=== PATIENT | male | born 1990 | race Caucasian/White ===

== ENCOUNTER 2017-06-06 08:00 | Emergency (ER) | payer MEDICAID, SELFPAY ==
[2017-06-06 08:01] VITALS: BP 144/84; PULSE 78; RESP 16; TEMP 36.9; O2SAT 97; BMI 21.2
--- NOTE | 2017-06-06 08:19 | ED.DCSUM_ITS ---
- ER Visit Summary Date of Service: 06/06/17 Chief Complaint: [Pain and swelling to right wrist.] History of Present Illness: The patient is a 26 M [presents to the emergency department with pain and swelling to his right wrist for about 4-5 days. Patient states that he awoke with discomfort one morning. 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 Patient also gives a history of a fall yesterday however he had the pain before yesterday. Patient states that he thinks the left wrist took the brunt of the fall yesterday. Patient denies any other injuries. Patient complains of pain with movement and states that 3 days ago could not use a nail gun.] Physical Examination: [Right wrist-patient has some soft tissue swelling diffusely. There is no erythema or warmth noted. There is no ecchymosis or bruising. He is neurovascularly intact distally. Most of the pain seems to be over the radial aspect. Patient has a negative Chay test. Pain is reproduced with extension of the thumb. ] Test Results: [X-ray right wrist-] acute fractures noted or dislocations based on my interpretation and official radiology report pending Emergency Department Course and Treatment: [Patient will be given a thumb spica splint and anti-inflammatory.] Treatment Plan: [Anti-inflammatory and recommended avoiding repetitive motions with the right wrist] Disposition: [Discharged to home in stable condition] Impression: [Right wrist pain-suspect tendinitis/sprain] This note was generated with [employer] dictation software. It may contain incorrect words, spelling, and punctuation that were not noted in review of the chart prior to signing ED Disposition - Plan for ED Patient: Chief Complaint: Upper Extremity Injury Referrals: Care Physician,No Primary [Primary Care Provider] -
--- NOTE | 2017-06-06 08:28 | RAD_ITS ---
STUDY: X-RAY - RIGHT WRIST REASON FOR EXAM: Male, 26 years old. Continued pain and swelling. Status post injury 5 days ago. TECHNIQUE: 3 view(s) of the wrist were obtained. COMPARISON: None. FINDINGS: Normal visualized distal radius and ulna. Normal radiocarpal articulation. Normal distal radioulnar articulation. Normal carpal bones. Normal carpal articulations. Normal carpometacarpal articulation of the thumb. Normal second through fifth carpometacarpal articulations. Normal visualized metacarpal bones. The soft tissue structures are unremarkable. RAD/Wrist min 3 Views IMPRESSION: Normal x-ray examination of the wrist. Electronically Signed: Isaac Mckeon MD at 8:56 EDT , Service support ,
--- NOTE | 2017-06-06 08:55 | ED.DEP ---
ED Disposition - Plan for ED Patient: Chief Complaint: Upper Extremity Injury Instructions: ED Sprain Wrist Prescriptions: Naproxen [Naprosyn] 500 mg PO BID PRN #20 tab Referrals: Care Physician,No Primary [Primary Care Provider] - Hannah Connors DO [STAFF PHYSICIAN] - 5-7 Days
[2017-06-06 09:24] VITALS: PULSE 81; RESP 16; O2SAT 99
--- NOTE | 2017-06-06 09:25 | ED.RN ---
THIS NURSE REVIEWED D/C INSTRUCTIONS WITH PT. PT VERBALIZED UNDERSTANDING OF INSTRUCTIONS. PT DENIES FURTHER NEEDS OR QUESTIONS AT THIS TIME. PT AMBULATES FROM ROOM ON OWN WITHOUT ASSISTANCE FROM STAFF
== END 2017-06-06 09:25 | disposition home or self-care (01) ==
PROVIDERS: Emergency Provider Emergency Medicine
DX: M25.531 Pain in right wrist (principal); Z72.0 Tobacco use
CPT/HCPCS: 73110; 99283

== ENCOUNTER 2017-10-04 11:40 | Emergency (ER) | payer MEDICAID, SELFPAY ==
[2017-10-04 11:42] VITALS: BP 154/84; PULSE 90; RESP 16; TEMP 36.7; O2SAT 98; BMI 20.2
--- NOTE | 2017-10-04 12:04 | ED.VISSUMM ---
- ER Visit Summary Date of Service: 10/04/17 Chief Complaint: Facial swelling History of Present Illness: The patient is a 27 M with no primary care physician or dentist. He reports he is swelling to his right maxilla that began 3-4 days ago. Is gradually worsened. Reports he has an aching diffuse pain over the right upper jaw that is 7 out of 10 at worst and 410 currently. Is worsened by eating. Physical Examination: Vitals: Stable. Afebrile. Mouth: No trismus. No edema of the floor of the mouth. Widespread dental decay. No focal tenderness or abscess. Mild soft tissue swelling of the right maxillary area. General: A&O x 3. NAD. Cardiovascular exam: Regular rate and rhythm, no murmur, rub or gallop. Respiratory exam: Clear to auscultation bilaterally. No wheezes or stridor. Abdominal exam: Soft, nontender, nondistended, normal bowel sounds. No peritoneal signs. Extremity: No clubbing, cyanosis, or edema. Emergency Department Course and Treatment: Patient was treated naproxen and penicillin. He is resting comfortably. Treatment Plan: Patient will be discharged naproxen and penicillin. Instructed to follow-up the dentist as soon as possible. He is given a list of local dentists. Disposition: To home in improved and stable condition. Impression: 1. Dental abscess. This note was generated with [employer] dictation software. It may contain incorrect words, spelling, and punctuation that were not noted in review of the chart prior to signing ED Disposition - Plan for ED Patient: Chief Complaint: Dental Instructions: ED Abscess Dental Prescriptions: Ondansetron [Zofran Odt] 4 mg PO Q8H PRN PRN #10 tablet PRN Reason: Nausea Naproxen [Naprosyn] 500 mg PO BID PRN #20 tablet Penicillin V Potassium 500 mg PO 4X/DAY #40 tablet Referrals: Dentist,Your [STAFF PHYSICIAN] - As soon as possible
[2017-10-04] MEDS: Penicillin Vk 250 MG Tablet 500 MG PO (12:28)
[2017-10-04] MEDS: Naproxen 250 MG Tablet 500 MG PO (12:28)
[2017-10-04 12:31] VITALS: BP 108/69; PULSE 55; RESP 16; O2SAT 100
== END 2017-10-04 12:31 | disposition home or self-care (01) ==
LOC: ED 12:17
PROVIDERS: Emergency Provider Emergency Medicine
DX: K04.7 Periapical abscess without sinus (principal); F17.210 Nicotine dependence, cigarettes, uncomplicated; K02.9 Dental caries, unspecified
CPT/HCPCS: 99282

== ENCOUNTER 2017-11-27 13:22 | Emergency (ER) | payer MEDICAID, SELFPAY ==
[2017-11-27 13:22] VITALS: BP 135/98; PULSE 133; RESP 18; TEMP 36.8; O2SAT 98; BMI 19.3
--- NOTE | 2017-11-27 14:03 | ED.VISSUMM ---
- ER Visit Summary Date of Service: 11/27/17 Chief Complaint: Dental abscess History of Present Illness: The patient is a 27 M draining abscess today left upper gumline. Increasing pain over 2 days. Subjective fevers. Tobacco history. No medication allergies. Tylenol taken this morning. Has a dental appointment in 2 weeks. States history of poor dentition. Last dentist evaluation was 2 years ago. No difficulty swallowing. No neck or chest pains. No dyspnea. Physical Examination: General: Alert and oriented ?3, no acute distress HEENT: Normocephalic, atraumatic. Moist mucosa membranes. Diffuse dental decay, mostly left upper molars with decay to the gumline. There is slight fluctuance in her soft palate to the molar. There is an open drainage site, there is no active drainage. Airway patent. No sublingual edema. Neck: supple, nontender. Cardiovascular: Regular rate 96 and rhythm, no murmurs Respiratory: Normal breath sounds, symmetric, no distress Abdomen: Soft, nontender, nondistended Extremities: Nontender, no edema, pulses intact ?4 Neuro: no focal neurological deficits. Test Results: [] Emergency Department Course and Treatment: Patient heart rate in triage was 133 on my evaluation was 96. Patient afebrile, nontoxic. Has a draining abscess. Patient started on naproxen and penicillin. He will follow-up keep his dentist appointment for definitive care as an outpatient. Treatment Plan: [] Disposition: Discharge Impression: 1. Dental abscess 2. Diffuse dental caries This note was generated with [employer] dictation software. It may contain incorrect words, spelling, and punctuation that were not noted in review of the chart prior to signing ED Disposition - Plan for ED Patient: Disposition: Home or Assisted Living Chief Complaint: Dental Diagnosis: Dental abscess Instructions: Dental Abscess Prescriptions: Naproxen [Naprosyn] 500 mg PO BID PRN #20 tablet Penicillin V Potassium 500 mg PO 4X/DAY #40 tablet Referrals: Care Physician,No Primary [Primary Care Provider] - Additional Instructions: Keep dentist appointment for definitive care. Take your medication as prescribed.
--- NOTE | 2017-11-27 14:07 | ED.DCSUM_ITS ---
- ER Visit Summary Date of Service: 11/27/17 Chief Complaint: Dental abscess History of Present Illness: The patient is a 27 M draining abscess today left upper gumline. Increasing pain over 2 days. Subjective fevers. Tobacco history. No medication allergies. Tylenol taken this morning. Has a dental a ppointment in 2 weeks. States history of poor dentition. Last dentist evaluation was 2 years ago. No difficulty swallowing. No neck or chest pains. No dyspnea. Physical Examination: General: Alert and oriented ?3, no acute distress HEENT: Normocephalic, atraumatic. Moist mucosa membranes. Diffuse dental decay, mostly left upper molars with decay to the gumline. There is slight fluctuance in her soft palate to the molar. There is an open drainage site, there is no active drainage. Airway patent. No sublingual edema. Neck: supple, nontender. Cardiovascular: Regular rate 96 and rhythm, no murmurs Respiratory: Normal breath sounds, symmetric, no distress Abdomen: Soft, nontender, nondistended Extremities: Nontender, no edema, pulses intact ?4 Neuro: no focal neurological deficits. Test Results: [] Emergency Department Course and Treatment: Patient heart rate in triage was 133 on my evaluation was 96. Patient afebrile, nontoxic. Has a draining abscess. Patient started on naproxen and penicillin. He will follow-up keep his dentist appointment for definitive care as an outpatient. Treatment Plan: [] Disposition: Discharge Impression: 1. Dental abscess 2. Diffuse dental caries This note was generated with [employer] dictation software. It may contain incorrect words, spelling, and punctuation that were not noted in review of the chart prior to signing ED Disposition - Plan for ED Patient: Disposition: Home or Assisted Living Chief Complaint: Dental Diagnosis: Dental abscess Instructions: Dental Abscess Prescriptions: Naproxen [Naprosyn] 500 mg PO BID PRN #20 tablet Penicillin V Potassium 500 mg PO 4X/DAY #40 tablet Referrals: Care Physician,No Primary [Primary Care Provider] - Additional Instructions: Keep dentist appointment for definitive care. Take your medication as prescribed.
[2017-11-27] MEDS: Penicillin Vk 250 MG Tablet 500 MG PO (14:10)
[2017-11-27] MEDS: Naproxen 500 MG Tablet PO (14:11)
[2017-11-27 14:12] VITALS: PULSE 86; O2SAT 98
== END 2017-11-27 14:13 | disposition home or self-care (01) ==
PROVIDERS: Emergency Provider Emergency Medicine
DX: K04.7 Periapical abscess without sinus (principal); Z72.0 Tobacco use; K02.9 Dental caries, unspecified
CPT/HCPCS: 99283

== ENCOUNTER 2018-09-07 07:00 | Emergency (ER) | payer MEDICAID, SELFPAY ==
[2018-09-07 07:01] VITALS: BP 142/83; PULSE 82; RESP 15; TEMP 36.4; O2SAT 97; BMI 21.1
--- NOTE | 2018-09-07 07:16 | ED.VIS.DENTA ---
History of Present Illness Chief Complaint: Dental Informant: Patient Onset: Today, Hours - 0300 Context: Sudden Onset Timing: Continuous Quality: Pain Location: Upper right teeth Current Severity: Moderate Maximum Severity: Severe Worsened by: Patient has not had any to eat or drink Relieved by: - - Nothing Associated Symptoms: Facial Swellling, - - Denies fever, and has not had any to eat or drink and is unaware if he has heat or cold sensitivity. Narrative: Patient is a 28-year-old male who is awake and sleep because of dental pain and facial swelling that he reports started at 0300. He has an appointment to be seen at the [facility] for extensive dental decay. He denies fever, chills night sweats. He denies a traumatic fever, murmur, SBE or IV drug use. He denies change in voice, difficulty opening closing his mouth, difficulty swallowing or breathing. He denies rash. Prior similar symptoms: Yes Recent Illness/Hospitalization: Yes - Past Medical History (1) Dental disease Status: Acute Past Medical History - Allergies and Home Meds Allergies/Adverse Reactions: Allergies SEAFOOD Allergy (Uncoded 11/27/17 13:22) Anaphylaxis Primary Care Physician: Care Physician,No Primary [Primary Care Provider] - Prior records reviewed: Yes Lives: Spouse/ Significant Other Smoking Status: Current every day smoker Alcohol: None Drugs: None Review of Systems General: Denies: Chills, Fever, Malaise, Subjective, Sweats, Weight loss, - Eyes: Denies: Visual changes - bilaterally, Blurred Vision - bilaterally, Diplopia ENT: Denies: Bilateral ear pain, Rhinorrhea, Sore throat Cardiovascular: Denies: Chest pain, Palpitations Respiratory: Denies: Dyspnea Gastrointestinal: Denies: Nausea, Vomiting Musculoskeletal: Denies: Myalgias, Arthralgias, Neck pain Skin: Denies: Rash, Wounds Neurological: Denies: Headache Allergy: Denies: Uticaria, Swelling of the mouth, Swelling of the tongue Physical Exam Vital Signs/Narrative: Vital Signs Temp Pulse Resp BP Pulse Ox 09/07/18 07:01 97.6 F L 82 15 142/83 H 97 Inital Vital Signs reviewed: Yes General: Well nourished, Well developed Head: Normocephalic, Atraumatic ENT: Moist mucous membranes, No nasal trauma, No rhinorrhea, Sinus tenderness, TM's clear, - - Swelling over the right maxillary region. Negative for: Dry mucous membranes, Nasal congestion, TM erythema left, TM erythema right Mouth/Throat: Normal oral mucosa, Normal posterior oropharynx, No sublingual edema, Normal Stensen's duct, Dental abscess, Gingivitis, Tenderness on tooth percussion, Widespread dental decay. Negative for: Normal inspection lips/gums - Lips appear normal. Gums are inflamed with evidence of periodontal disease, Apthous ulcer, Dental trauma, Dental avulsion, Dentral fracture, Filling loss, Focal gum swelling, Trismus Neck: Supple, No lymphadenopathy, Nontender, No JVD. Negative for: Anterior submandibular lymphadenopathy, Posterior submandibular lymphadenopathy, Anterior submental lymphadenopathy, Posterior submental lymphadenopathy, Soft tissue swelling, Submandibular soft tissue swelling, Submental soft tissue swelling, Parotid tenderness Cardiovascular: Regular rate, Regular rhythm, No murmurs, Normal S1, Normal S2 Respiratory: No distress, CTA bilaterally Skin: Normal color, No rash, No Trauma. Negative for: Cyanosis, Diaphoresis, Jaundice Neurological: Alert, Oriented x3, Cranial nerves II-XII grossly intact, Normal Strength, Normal Sensation Psychological: Normal affect Diagnostic/Tx/Re-eval - Medical Decision Making Patient has extensive dental caries with exposure of pulp and erosion to gum. There is facial swelling consistent with an apical abscess. There is no evidence of trismus. There is no evidence of facial cellulitis. Patient was treated with clindamycin and NSAIDs in the department since there is no contraindication. Prescription for gentamicin, NSAID and opiate analgesia was electronically transmitted to pharmacy of choice. ED Disposition - Plan for ED Patient: Disposition: Home or Assisted Living Diagnosis: Apical alveolar abscess, Dental caries extending into pulp, Gingivitis, Periodontal disease, unspecified Instructions: Dental Abscess Prescriptions: Clindamycin HCl [Cleocin] 300 mg PO Q6H #28 cap Transmission Status: Pending to [facility] Naproxen [Naprosyn] 500 mg PO BID #14 tab Transmission Status: Pending to [facility] Hydrocodone Bitart/Apap 5-325 [[place] 5MG-325MG] 1 tablet PO Q6H PRN PRN 3 Days #10 tablet PRN Reason: Pain Transmission Status: Received by [facility] Referrals: Care Physician,No Primary [Primary Care Provider] - Lana Judd [NON-STAFF] - Keep Leonardo appointment Additional Instructions: Prescriptions were electronically transmitted to [facility].
[2018-09-07] MEDS: Naproxen 250 MG Tablet 500 MG PO (07:26)
[2018-09-07] MEDS: Clindamycin HCl 150 MG Capsule 300 MG PO (07:26)
== END 2018-09-07 07:31 | disposition home or self-care (01) ==
LOC: ED 07:28
PROVIDERS: Emergency Provider Emergency Medicine
DX: K04.7 Periapical abscess without sinus (principal); K02.9 Dental caries, unspecified; K05.10 Chronic gingivitis, plaque induced; K05.6 Periodontal disease, unspecified; F17.200 Nicotine dependence, unspecified, uncomplicated
CPT/HCPCS: 99283

== ENCOUNTER 2019-03-06 21:43 | Emergency (ER) | payer MEDICAID, SELFPAY ==
[2019-03-06 21:43] VITALS: BP 149/92; PULSE 81; RESP 18; TEMP 36.9; O2SAT 98; BMI 21.7
--- NOTE | 2019-03-06 22:38 | ED.VISSUMM ---
- ER Visit Summary Date of Service: 03/06/19 Chief Complaint: Dental pain History of Present Illness: The patient is a 28 M no significant past medical history. He has appointment see his dentist next week. Basically states he has known cavities and decay. He ran out of his penicillin. And is scheduled to have teeth pulled and dentures made. Denies any fever or chills. Physical Examination: Male no acute distress vital signs stable afebrile. H EENT exam unremarkable except very poor dentition multiple cavities multiple decayed teeth down the gumline. Swollen gums but no abscess. No trismus. No facial swelling. Posterior pharynx is normal. No trouble swallowing or breathing. No swelling or tenderness underneath the tongue on the floor of his mouth. Neck nontender no lymphadenopathy. Lungs clear to auscultation. Heart regular rhythm no murmur. Abdomen is soft and nontender. Normal bowel sounds. No peritoneal signs. He is moving all 4 extremities. Neurologically is awake and alert with no focal motor deficits. Test Results: None Emergency Department Course and Treatment: Patient be started on Pen-Vee K 500 4 times daily 10 days. Tylenol Motrin for pain. Treatment Plan: Oral antibiotics. Motrin for pain. Follow-up with his dentist. Disposition: Discharge Impression: Dental cavities, decay and pain Gingivitis This note was generated with [employer] dictation software. It may contain incorrect words, spelling, and punctuation that were not noted in review of the chart prior to signing ED Disposition - Plan for ED Patient: Referrals: Pete Burger MD [Primary Care Provider] -
--- NOTE | 2019-03-06 22:40 | ED.DEP ---
ED Disposition - Plan for ED Patient: Disposition: Home or Assisted Living Instructions: Dental Pain, Dental Cavity Prescriptions: Penicillin Vk [Pen-Vee K , V-Cillin K] 500 mg PO 4X/DAY #40 tab Prescription Printed Referrals: Pete Burger MD [Primary Care Provider] - As Needed Additional Instructions: Antibiotic 4 times a day. Tylenol and Motrin for pain. Follow-up with your dentist.
== END 2019-03-06 22:51 | disposition home or self-care (01) ==
PROVIDERS: Emergency Provider Emergency Medicine; PCP Family Medicine
DX: K02.9 Dental caries, unspecified (principal); K05.10 Chronic gingivitis, plaque induced; Z72.0 Tobacco use
CPT/HCPCS: 99282

== ENCOUNTER 2020-01-12 13:23 | Emergency (ER) | payer MEDICAID, SELFPAY ==
[2020-01-12 13:23] VITALS: BP 151/101; PULSE 103; RESP 20; TEMP 36.3; O2SAT 98; BMI 23.6
[2020-01-12 13:35] VITALS: BP 151/101; PULSE 103; RESP 20; TEMP 36.3; O2SAT 98
--- NOTE | 2020-01-12 13:55 | ED.DCSUM_ITS ---
- ER Visit Summary Date of Service: 01/12/20 Chief Complaint: Subjective fevers History of Present Illness: The patient is a 29 M who presents with subjective fevers that began this morning. Patient states he has been feeling hot at home. Patient states it is off and on. Patient admits to drinking some alcohol last night. Patient states he woke up and noticed the subjective fevers this morning. Patient also admits to some dental infections. Patient states he has burning and throbbing in his lower molars on the right. Patient states it is worse with eating hot foods. Patient states it improved slightly with Naprosyn. Patient also admits to a headache. Patient states he has not been on antib iotics for a month. Patient states he is scheduled to see his dentist this week. Physical Examination: Vital signs are stable. Patient is afebrile. Patient is in no acute distress. Oral mucosa is pink and moist. There are multiple dental caries noted. There is some gingival edema in the right lower molar area. There is no fluctuance. There is no evidence of any abscess. There is no sublingual edema or evidence of Piotr's angina. Neck is supple. Trachea is midline. There is no JVD. Heart was regular rate and rhythm. Lungs are clear and equal bilaterally. Abdomen is soft. Bowel sounds are normal. There is no tenderness. Cranial nerves II through XII are intact. There are no focal motor or sensory deficits noted. Extremities are intact. There is no calf tenderness or edema. Emergency Department Course and Treatment: Patient was given a dose of Pen-Vee K here. Patient was given a prescription for Pen-Vee K. Patient states he is not concerned that his fever may be coming from COVID-19. Patient states his and daughter have been tested and were both negative. Patient states he has not had any known exposures to COVID-19. Patient denies any loss of taste or smell. Patient was instructed to follow-up with his dentist this week. Patient was instructed to follow-up with his primary care physician in 5 to 7 days. Patient understood and was agreeable with the plan. All questions were answered. Disposition: Discharge home Impression: 1. Infected dental caries This note was generated with [employer] software. It may contain incorrect words, spelling, and punctuation that were not noted in review of the chart prior to signing ED Disposition - Plan for ED Patient: Disposition: Home or Assisted Living Diagnosis: Infected dental caries Instructions: ED CAVITY Dental Prescriptions: Penicillin V Potassium 500 mg PO 4X/DAY #40 tab Prescription Printed Referrals: Pete Burger MD [Primary Care Provider] - 5-7 Days Dentist,Your [STAFF PHYSICIAN] - Keep Leonardo appointment
[2020-01-12] MEDS: Penicillin Vk 250 MG Tablet 500 MG PO (14:34)
== END 2020-01-12 14:36 | disposition home or self-care (01) ==
LOC: ED 14:22
PROVIDERS: Emergency Provider Emergency Medicine; PCP Family Medicine
DX: K04.7 Periapical abscess without sinus (principal); K02.9 Dental caries, unspecified; Z87.891 Personal history of nicotine dependence
CPT/HCPCS: 99282

== ENCOUNTER 2020-06-29 14:02 | Emergency (ER) | payer MEDICAID, SELFPAY ==
[2020-06-29 14:04] VITALS: BP 139/98; PULSE 103; RESP 18; TEMP 36.9; O2SAT 98; BMI 21.7
--- NOTE | 2020-06-29 14:10 | ED.VIS.DENTA ---
HPI History of Present Illness Chief Complaint: Dental Informant: patient Onset/Context/Timing Onset: Days Context: Gradual Onset Timing: Continuous Current Severity: Moderate Maximum Severity: Moderate Relieved by: Topicals Associated Symptoms Assocated Symptom - Dental: cold sensitivity and hot sensitivity; Negative for fever, jaw swelling or face swelling Narrative Narrative: The patient is a 29-year-old male with no significant medical history presents to the emergency department dental pain. Patient states he has an appointment with his dentist coming up. He has widespread dental disease and states that over the past 2 days, he has had increasing pain in his right lower jaw. He denies any fevers or chills. He denies any trouble speaking or swallowing. He is otherwise been in his normal state of health. Prior similar symptoms: Yes Recent Illness/Hospitalization: No PFSH PFSH Home Medications penicillin V potassium 500 mg PO 4X/DAY #40 tab 03/06/19 [Rx Last Taken Unknown] penicillin V potassium 500 mg PO 4X/DAY #40 tab 01/12/20 [Rx Last Taken Unknown] naproxen 500 mg PO BID #20 tab 06/29/20 [Rx Last Taken Unknown] penicillin V potassium 500 mg PO 4X/DAY #40 tab 06/29/20 [Rx Last Taken Unknown] Allergy/AdvReac Type Severity Reaction Status Date / Time SEAFOOD Allergy Anaphylaxis Uncoded 06/29/20 14:05 Social History Smoking Status: Current every day smoker ROS ROS ED Constitutional Constitutional ED: Denies chills or fever(s) Eyes Eyes: Denies blurry vision or change in vision ENT ENT ED: Denies ear pain or sore throat Cardiovascular Cardiovascular: Denies chest pain or palpitations Respiratory/Chest Respiratory/Chest: Denies cough, dyspnea or dyspnea on exertion Gastrointestinal Gastrointestinal: Denies abdominal pain, nausea or vomiting Genitourinary Genitourinary ED: Denies dysuria or urinary frequency Musculoskeletal Musculoskeletal: Denies arthralgias or myalgias Integumentary Denies rash Neurologic Neurologic: Denies headache(s) or paresthesias Psychiatric Psychiatric: Denies anxiety or depression Endocrine Endocrinology: Denies polydipsia or polyuria Allergic/Immunologic Allergic/Immunologic ED: Denies urticaria EXAM Physical Exam Const Vital Signs: 06/29/20 14:04 Temperature 98.5 F Temperature Source Temporal Pulse Rate 103 H Respiratory Rate 18 Blood Pressure 139/98 H Blood Pressure Mean 111 Pulse Ox 98 Oxygen Delivery Method Room Air Positive well nourished and well developed General Appearance ED: well developed HEENT Reports normocephalic, head/scalp atraumatic and moist mucous membranes HEENT Narrative: The patient has widespread dental disease. There are erosive cavities. He has poor dentition. The submental space is soft. There is no trismus or stridor. Mouth ED: Yes oral and palatal mucosa normal, Yes lips normal, Yes tongue normal, No mouth trauma and No salivary gland abnormal Mouth: oral and palatal mucosa normal, lips normal, tongue normal, No mouth trauma and No salivary gland abnormal Teeth and Gingiva: abnormal tooth and associated gingiva, poor dentition and teeth discoloration Throat: posterior oropharynx normal Eyes PERRL and EOMs intact bilaterally Neck no lymphadenopathy and supple General: Negative for tenderness Chest Wall inspection of chest normal Resp normal respiratory effort and clear to auscultation bilaterally Cardio regular rate, regular rhythm and no murmurs GI normal to inspection, nondistended, normoactive bowel sounds Palpation: Negative for tender, guarding or rebound tenderness present Back/Spine no CVA tenderness Cervical Spine: Negative for cervical spine tenderness Thoracic Spine / Upper Back: Negative for thoracic spinal tenderness Extremity normal to inspection General Extremety ED: Negative for tenderness Neuro oriented x3 and CN's II-XII intact bilaterally Neuro Narrative: No focal deficits appreciated. Sensorium / Orientation: alert Psych mental status grossly normal Skin no rashes or lesions noted, no wounds and skin turgor normal MDM MDM MDM Narrative Medical decision making narrative: The patient presents with dental pain. There is widespread dental disease, but no evidence of Piotr angina. There are multiple cavities that are erosive. He has no significant jaw tenderness or fluctuance. The patient will be treated with penicillin. He is given a dose of analgesics here and be continued on anti-inflammatories. He will be discharged home. Impression 1. Dental pain Discharge Plan Triage Chief Complaint: Dental ED Provider: Capo Ramírez Dx/Rx/DC Orders Instructions: ED Dental Pain Prescriptions: New penicillin V potassium 500 MG tablet 500 mg PO 4X/DAY Qty: 40 RF: 0 naproxen 500 MG tablet 500 mg PO BID Qty: 20 RF: 0 No Action penicillin V potassium 250 MG tablet 500 mg PO 4X/DAY Qty: 40 RF: 0 penicillin V potassium 500 MG tablet 500 mg PO 4X/DAY Qty: 40 RF: 0 Primary Care Provider: Pete Burger Referrals: Pete Burger MD [Primary Care Provider] -
[2020-06-29] MEDS: HYDROcodone Bitartrate/Apap 5/325 Tablet PO (14:51)
[2020-06-29 14:53] VITALS: RESP 85
== END 2020-06-29 14:55 | disposition home or self-care (01) ==
LOC: ED 14:24
PROVIDERS: Emergency Provider Emergency Medicine; PCP Family Medicine
DX: K08.89 Other specified disorders of teeth and supporting structures (principal); F17.200 Nicotine dependence, unspecified, uncomplicated; Z79.1 Long term (current) use of non-steroidal anti-inflammatories (NSAID)
CPT/HCPCS: 99283

== ENCOUNTER 2020-07-06 14:50 | Emergency (ER) | payer MEDICAID, SELFPAY ==
[2020-07-06 14:51] VITALS: BP 128/92; PULSE 118; RESP 16; TEMP 36.3; O2SAT 97; BMI 23.1
--- NOTE | 2020-07-06 15:15 | RAD_ITS ---
STUDY: X-RAY - RIGHT ANKLE REASON FOR EXAM: Male, 29 years old. Pain after trauma. TECHNIQUE: 3 view(s) of the ankle. COMPARISON: None. FINDINGS: Please see the impression. RAD/Ankle min 3 Views IMPRESSION: Displaced avulsion fracture fragment between the lateral talus and lateral malleolus, probably old. Soft tissue swelling overlying the lateral malleolus. Electronically Signed: Wesley Chang MD at 15:32 EDT Tel , Service support ,
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
== END 2020-07-06 15:49 | disposition home or self-care (01) ==
LOC: ED 15:42
PROVIDERS: Emergency Provider Emergency Medicine; PCP Family Medicine
DX: S93.401A Sprain of unspecified ligament of right ankle, initial encounter (principal); W01.0XXA Fall on same level from slipping, tripping and stumbling without subsequent striking against object, initial encounter; Y93.9 Activity, unspecified; Y92.9 Unspecified place or not applicable; Y99.9 Unspecified external cause status; F17.200 Nicotine dependence, unspecified, uncomplicated; Z79.1 Long term (current) use of non-steroidal anti-inflammatories (NSAID)
CPT/HCPCS: 73610; 99283

== ENCOUNTER 2020-07-17 19:44 | Emergency (ER) | payer MEDICAID, SELFPAY ==
[2020-07-17 19:44] VITALS: BP 152/92; PULSE 98; RESP 16; TEMP 36.6; O2SAT 98; BMI 22.9
--- NOTE | 2020-07-17 19:50 | ED.RN ---
PT OBSERVED LEAVING DEPT SOON AFTER BEING ROOMED. PT STATES I'M GOOD, JUST TALKED TO MY DOCTOR. FURTHER STATES HE DOES NOT WANT TO BE EVALUATED IN ED NOW.
== END 2020-07-17 19:55 ==
LOC: ED 19:58
PROVIDERS: Emergency Provider Emergency Medicine; PCP Family Medicine
DX: M79.606 Pain in leg, unspecified (principal)

== ENCOUNTER 2020-11-24 08:58 | Emergency (ER) | payer MEDICAID, SELFPAY ==
[2020-11-24 08:59] VITALS: BP 125/89; PULSE 89; RESP 16; TEMP 36.6; O2SAT 95; BMI 22.0
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
--- NOTE | 2020-11-24 09:15 | RAD_ITS ---
STUDY: X-RAY - RIGHT HAND REASON FOR EXAM: Male, 30 years old. Injury TECHNIQUE: 3 view(s) of the hand. COMPARISON: None. FINDINGS: Normal radiocarpal articulation. Normal distal radioulnar joint. Normal visualized carpal bones. Normal carpal articulations Normal carpometacarpal articulation of the thumb. Normal second through fifth carpometacarpal joints. Nondisplaced condylar fracture at the base of the fifth metacarpal Normal metacarpophalangeal joint of the thumb. Normal interphalangeal joint of the thumb. Normal proximal and distal phalanges of the thumb. Normal metacarpophalangeal joints of the second through fifth fingers. Normal proximal and distal interphalangeal joints of the second through fifth fingers. Normal phalanges of the second through fifth fingers. Soft tissue swelling. RAD/Hand Min 3 Views IMPRESSION: Nondisplaced comminuted fracture base of the fifth metacarpal with overlying soft tissue swelling. Electronically Signed: Antonio Clark MD at 9:25 EDT , Service support ,
== END 2020-11-24 10:01 | disposition home or self-care (01) ==
PROVIDERS: Emergency Provider Emergency Medicine; PCP Family Medicine
DX: S62.346A Nondisplaced fracture of base of fifth metacarpal bone, right hand, initial encounter for closed fracture (principal); W22.01XA Walked into wall, initial encounter; F17.210 Nicotine dependence, cigarettes, uncomplicated; Z79.1 Long term (current) use of non-steroidal anti-inflammatories (NSAID)
CPT/HCPCS: 73130; 99282

== ENCOUNTER → 2021-07-09 | Outpatient (CLI) | payer MEDICAID, SELFPAY ==
[2021-07-09 10:05] LABS: NATERA MAILED SPECIMEN
== END | disposition home or self-care (01) ==
LOC: PAVLAB 08:50
PROVIDERS: PCP Family Medicine; Referring Provider Obstetrics & Gynecology; Visit Provider Obstetrics & Gynecology
DX: Z31.440 Encounter of male for testing for genetic disease carrier status for procreative management (principal)
CPT/HCPCS: 36415

== ENCOUNTER 2021-10-26 10:43 | Emergency (ER) | payer MEDICAID, SELFPAY ==
[2021-10-26 10:44] VITALS: BP 127/98; PULSE 87; RESP 16; TEMP 36.3; O2SAT 99; BMI 22.4
--- NOTE | 2021-10-26 11:27 | ED.VIS.DENTA ---
HPI History of Present Illness Chief Complaint: Dental Informant: patient Narrative Narrative: Patient is a 31-year-old male with history of dental disease and tobacco use presenting with increased right mandibular dental pain. Has been worsening for the past 2 days. He states on this happens normally he will get Naprosyn and penicillin. He had a cough work today because he had a headache associated with this. He last had Naprosyn around 9 AM. He does have an appointment to see a dentist but not until March because at the soonest they can get him in. Denies any difficulty swallowing. Denies any fever or chills. No other complaints at this time. PFSH PFSH Home Medications amoxicillin 875 mg-potassium clavulanate 125 mg tablet 1 tab PO Q12H #20 tabs 10/26/21 [Rx Last Taken Unknown] naproxen 500 mg tablet (Naprosyn) 500 mg PO BID PRN pain #30 tabs 10/26/21 [Rx Last Taken Unknown] Allergy/AdvReac Type Severity Reaction Status Date / Time SEAFOOD Allergy Anaphylaxis Uncoded 11/24/20 09:01 Social History Smoking Status: Current every day smoker tobacco type: cigarettes ROS ROS ED Constitutional Constitutional ED: Denies chills or fever(s) Eyes Eyes: Denies change in vision ENT ENT ED: Reports other Details: Right lower dental pain ; Denies ear pain or sore throat Cardiovascular Cardiovascular: Denies chest pain Respiratory/Chest Respiratory/Chest: Denies cough or dyspnea Gastrointestinal Gastrointestinal: Denies nausea or vomiting Integumentary Denies rash Neurologic Neurologic: Reports headache(s); Denies paresthesias Psychiatric Psychiatric: Denies anxiety EXAM Physical Exam Const Vital Signs: 10/26/21 10:44 Temperature 97.4 F L Temperature Source Temporal Pulse Rate 87 Respiratory Rate 16 Blood Pressure 127/98 H Blood Pressure Mean 107 Pulse Ox 99 Oxygen Delivery Method Room Air Positive well nourished and well developed General Appearance ED: well developed and NAD HEENT Reports TM's clear HEENT Narrative: Severely poor dentition throughout with multiple missing teeth and the remaining teeth are all broken and ground down. No obvious abscess appreciated. No swelling of the buccal surface or cheek appreciated. Normal phonation. Sublingual mucosa is soft. Generalized tenderness of the right lower mandibular area. Negative for trauma Face and Sinus: Negative for sinuses nontender Tympanic Membrane ED: Yes TM's clear Eyes PERRL and EOMs intact bilaterally Neck supple Neck Narrative: No meningeal signs Chest Wall inspection of chest normal and palpation of chest normal Resp normal respiratory effort Cardio regular rate and regular rhythm Neuro oriented x3 Sensorium / Orientation: alert Motor Exam: Negative for general weakness Psych mental status grossly normal MDM MDM MDM Narrative Medical decision making narrative: Patient evaluated for acute on chronic dental pain. He has poor dentition throughout. We started on Augmentin and given Tylenol in the ER as he already had naproxen prior to arrival. Will be given a prescription for naproxen and Augmentin. Is given referral for [facility]. Counseled to abstain from tobacco use. No signs of Piotr's angina or any airway compromise. No abscess amenable to drainage at this time. Discharge Plan Triage Chief Complaint: Dental ED Provider: Moriah Vidal Dx/Rx/DC Orders Clinical Impression: Dental disease, Dentalgia, Tobacco use Instructions: ED Dental Cavity Prescriptions: New naproxen [Naprosyn] 500 mg tablet 500 mg PO BID PRN (Reason: pain) Qty: 30 0RF amoxicillin-pot clavulanate 875-125 mg tablet 1 tab PO Q12H Qty: 20 0RF Primary Care Provider: Pete Burger Referrals: Pete Burger MD [Primary Care Provider] - Lana Judd [Non-Staff] - As soon as possible Activity Restrictions/Additional Instructions: You may take [id number] Tylenol in addition to the naproxen Disposition Disposition: Home, Self Care
[2021-10-26] MEDS: Acetaminophen 325 MG Tablet 650 MG PO (11:34)
[2021-10-26] MEDS: Amox/Clavulanate 875 MG Tablet PO (11:34)
== END 2021-10-26 11:39 | disposition home or self-care (01) ==
LOC: ED 11:39
PROVIDERS: Emergency Provider Emergency Medicine; PCP Family Medicine; Visit Provider Emergency Medicine
DX: K08.89 Other specified disorders of teeth and supporting structures (principal); R68.84 Jaw pain; F17.210 Nicotine dependence, cigarettes, uncomplicated
CPT/HCPCS: 99283

== ENCOUNTER 2022-04-09 11:25 | Emergency (ER) | payer MEDICAID, SELFPAY ==
[2022-04-09 11:26] VITALS: BP 160/98; PULSE 133; RESP 18; TEMP 36.7; O2SAT 98; BMI 22.8
[2022-04-09] MEDS: Amox/Clavulanate 875 MG Tablet PO (12:15)
--- NOTE | 2022-04-09 12:19 | ED.VIS.DENTA ---
HPI History of Present Illness Chief Complaint: Dental Informant: patient Narrative Narrative: Patient is a 31-year-old male with history of poor dentition and tobacco use presenting with worsening dental pain. He states had worsening pain over the past 1 to 2 weeks. He has not taken any [id number] NSAIDs as he ran out of his prior prescription naproxen however he has been taking a couple shots of liquor a day to help with his pain. He feels that he is having a hard time swallowing and is concerned because his tongue has a discoloration. He has an appointment to see a dentist in [facility] however is not till June. He initially had an appointment for March but because of his insurance at this time and had to be moved/change. Patient states he has cut back on his tobacco use. He denies any drooling. Denies any speech changes. Denies any significant facial swelling. The pain is worse on his right lower jaw. No fevers. No other complaints at this time. PFSH PFSH Home Medications amoxicillin 875 mg-potassium clavulanate 125 mg tablet 1 tab PO Q12H #20 tabs 10/26/21 [Rx Last Taken Unknown] naproxen 500 mg tablet (Naprosyn) 500 mg PO BID PRN pain #30 tabs 10/26/21 [Rx Last Taken Unknown] amoxicillin 875 mg-potassium clavulanate 125 mg tablet 1 tab PO BID #14 tabs 04/09/22 [Rx Last Taken Unknown] naproxen 500 mg tablet (Naprosyn) 500 mg PO BID PRN pain #20 tabs 04/09/22 [Rx Last Taken Unknown] Allergy/AdvReac Type Severity Reaction Status Date / Time fish derived Allergy Severe Anaphylaxis Verified 01/21/22 16:21 [seafood - derived] shellfish derived Allergy Severe Anaphylaxis Verified 01/21/22 16:21 [seafood - shellfish] Social History Smoking Status: Current every day smoker tobacco type: cigarettes ROS ROS ED Constitutional Constitutional ED: Denies chills or fever(s) Eyes Eyes: Denies change in vision ENT ENT ED: Reports other Details: Painful swallowing, right lower dental pain Cardiovascular Cardiovascular: Denies chest pain Respiratory/Chest Respiratory/Chest: Denies cough Gastrointestinal Gastrointestinal: Denies nausea or vomiting Integumentary Denies rash Neurologic Neurologic: Denies headache(s) Hematologic/Lymphatic Hematologic/Lymphatic: Denies easy bleeding or easy bruising EXAM Physical Exam Const Vital Signs: 04/09/22 11:26 04/09/22 12:27 Temperature 98.1 F Temperature Source Temporal Pulse Rate 133 H 64 Respiratory Rate 18 15 Blood Pressure 160/98 H 124/77 H Blood Pressure Mean 118 Pulse Ox 98 97 Oxygen Delivery Method Room Air Positive well nourished and well developed General Appearance ED: well developed and NAD HEENT HEENT Narrative: Normocephalic atraumatic. Slightly injected right tympanic membrane. No air-fluid level or bulging appreciated. Normal left tympanic membrane. Normal nasal mucosa. Patient has a poor dentition with multiple missing and rotted teeth. No obvious abscess. Submental mucosa is soft. He does have some mild erythema/injection of the oropharynx but the uvula is midline. Normal phonation and no trismus appreciated. Mild anterior cervical chain lymphadenopathy with mild tenderness on the right compared to the left. Normal thyroid on palpation. Eyes PERRL Neck supple General: normal visual inspection; Negative for anterior neck swelling or submandibular swelling Chest Wall inspection of chest normal Resp normal respiratory effort Cardio regular rhythm and no murmurs Rate: tachycardic GI normal to inspection, nondistended, normoactive bowel sounds Neuro oriented x3 and moves all extremities Sensorium / Orientation: alert Motor Exam: Negative for general weakness Psych mental status grossly normal Mood & Affect: anxious Skin no rashes or lesions noted MDM MDM MDM Narrative Medical decision making narrative: Patient is evaluated for recurrent dental pain. I actually saw him about 6 months ago for similar complaint. He did have temporary improvement with Augmentin and naproxen however his symptoms have returned. I do not see an obvious abscess amenable to drainage. No signs of airway compromise or Piotr's angina. I do not appreciate any significant edema of the face. I do not think lab work or imaging is indicated at this time. Patient is given referral to the [facility] clinic for additional dental resources and is given the dental clinic form. He will be restarted again on Augmentin and naproxen. He is given first dose in the emergency room. He is counseled return precautions. He is counseled/encouraged to work on abstaining from tobacco use. He verbalizes agreement understand this plan. Discharge Plan Triage Chief Complaint: Dental ED Provider: Moriah Vidal Dx/Rx/DC Orders Clinical Impression: Dental disease, Odynophagia Instructions: ED Dental Pain Prescriptions: New amoxicillin-pot clavulanate 875-125 mg tablet 1 tab PO BID Qty: 14 0RF naproxen [Naprosyn] 500 mg tablet 500 mg PO BID PRN (Reason: pain) Qty: 20 0RF No Action naproxen [Naprosyn] 500 mg tablet 500 mg PO BID PRN (Reason: pain) Qty: 30 0RF amoxicillin-pot clavulanate 875-125 mg tablet 1 tab PO Q12H Qty: 20 0RF Stand Alone Forms: ED Work / School Excuse Primary Care Provider: Pete Burger Referrals: Pete Burger MD [Primary Care Provider] - Lana Judd [Non-Staff] - As soon as possible Disposition Disposition: Home, Self Care Discharge Date/Time: 04/09/22 12:28
[2022-04-09 12:27] VITALS: BP 124/77; PULSE 64; RESP 15; O2SAT 97
== END 2022-04-09 12:28 | disposition home or self-care (01) ==
PROVIDERS: Emergency Provider Emergency Medicine; PCP Family Medicine; Visit Provider Emergency Medicine
DX: K08.89 Other specified disorders of teeth and supporting structures (principal); R13.10 Dysphagia, unspecified; F17.210 Nicotine dependence, cigarettes, uncomplicated; R68.84 Jaw pain
CPT/HCPCS: 99283

== ENCOUNTER 2022-07-09 00:13 | Emergency (ER) | payer MEDICAID, SELFPAY ==
[2022-07-09 00:14] VITALS: BP 127/94; PULSE 102; RESP 18; TEMP 36.2; O2SAT 99; BMI 23.9
--- NOTE | 2022-07-09 00:24 | CT_ITS ---
INDICATION: hematuria. A radiation dose optimization technique was used for this scan. COMPARISON: None. FINDINGS: Noncontrast serial CT axial images through the abdomen and pelvis with coronal and sagittal reformatted series. PANCREAS: No peripancreatic fat stranding. BOWEL/MESENTERY: No dilated bowel loops. No significant free fluid. No free air. GALLBLADDER: No pericholecystic fat stranding. LIVER/STOMACH: Fatty liver. URINARY COLLECTING SYSTEM/ KIDNEYS: No obstructing ureteral calculus. No significant renal parenchymal abnormality. APPENDIX: Normal caliber gas containing appendix. LUNG BASES: Unremarkable. BONES: Unremarkable for age. CT/Abdomen/Pelvis without Cont IMPRESSION: No acute abdominal abnormality is identified, to include normal appendix and no evidence of obstructing ureteral calculus. Fatty liver. Electronically Signed: Rolo Garcia MD at 1:31 EDT ,
--- NOTE | 2022-07-09 00:25 | EX.ED.DYSGE1 ---
HPI History of Present Illness Chief Complaint: Complaint Detail of Chief Complaint: Dysuria, hematuria Informant: patient Onset/Context/Timing Onset: Weeks Context: Gradual Onset Narrative Narrative: Patient presents with a 2-week history of dysuria. He denies suprapubic or back pain stating he only had pain when he urinated. Today the pain has become worse and he started noticing blood in his urine as well. No fever or chills. No history of STDs. No lesions or discharge. No testicular pain. PFSH PFSH Medical History no medical history no medical history Home Medications amoxicillin 875 mg-potassium clavulanate 125 mg tablet 1 tab PO Q12H #20 tabs 10/26/21 [Rx Last Taken Unknown] naproxen 500 mg tablet (Naprosyn) 500 mg PO BID PRN pain #30 tabs 10/26/21 [Rx Last Taken Unknown] amoxicillin 875 mg-potassium clavulanate 125 mg tablet 1 tab PO BID #14 tabs 04/09/22 [Rx Last Taken Unknown] naproxen 500 mg tablet (Naprosyn) 500 mg PO BID PRN pain #20 tabs 04/09/22 [Rx Last Taken Unknown] doxycycline monohydrate 100 mg capsule 100 mg PO BID #20 CAPSULES 07/09/22 [Rx Last Taken Unknown] phenazopyridine 200 mg tablet (Pyridium) 200 mg PO TID PRN pain #10 tabs 07/09/22 [Rx Last Taken Unknown] Allergy/AdvReac Type Severity Reaction Status Date / Time fish derived Allergy Severe Anaphylaxis Verified 01/21/22 16:21 [seafood - derived] shellfish derived Allergy Severe Anaphylaxis Verified 01/21/22 16:21 [seafood - shellfish] Social History Smoking Status: Current every day smoker tobacco type: cigarettes ROS ROS ED Constitutional Constitutional ED: Denies chills or fever(s) Eyes Eyes: Denies change in vision ENT ENT ED: Denies rhinorrhea or sore throat Cardiovascular Cardiovascular: Denies chest pain or palpitations Respiratory/Chest Respiratory/Chest: Denies cough or dyspnea Gastrointestinal Gastrointestinal: Denies abdominal pain, diarrhea, nausea or vomiting Genitourinary Genitourinary ED: Reports dysuria, hematuria and urinary frequency Musculoskeletal Musculoskeletal: Denies back pain or extremity pain Integumentary Denies Abrasions or rash Neurologic Neurologic: Denies headache(s) or weakness Psychiatric Psychiatric: Denies anxiety or depression Allergic/Immunologic Allergic/Immunologic ED: Denies lip swelling or urticaria EXAM Physical Exam Const Vital Signs: 07/09/22 00:14 Temperature 97.2 F L Temperature Source Temporal Pulse Rate 102 H Respiratory Rate 18 Blood Pressure 127/94 H Blood Pressure Mean 105 Pulse Ox 99 Oxygen Delivery Method Room Air Positive well nourished and well developed General Appearance ED: well developed HEENT Reports normocephalic and head/scalp atraumatic Eyes PERRL and EOMs intact bilaterally Neck supple Chest Wall inspection of chest normal and palpation of chest normal Resp normal respiratory effort and clear to auscultation bilaterally Cardio regular rate and regular rhythm GI normal to inspection, nondistended, normoactive bowel sounds Palpation: soft Back/Spine no CVA tenderness Extremity normal to inspection Neuro oriented x3 and no sensory deficits noted Sensorium / Orientation: alert Motor Exam: strength 5/5 throughout Psych mental status grossly normal Skin no rashes or lesions noted MDM MDM MDM Narrative Medical decision making narrative: Labwork obtained to evaluate for leukocytosis, anemia, and electrolyte derangement. Urinalysis obtained to evaluate for infection/hematuria. CT scan of the flank obtained to evaluate for acute renal abnormality or kidney stone. Patient given a dose of Toradol along with a dose of Pyridium. Lab Data Attestation: I reviewed the patient's lab results. Labs: Laboratory Results - last 24 hr 07/09/22 07/09/22 07/09/22 00:19 00:30 00:30 WBC 11.7 H RBC 4.73 Hgb 14.9 Hct 43.9 MCV 92.8 MCH 31.5 MCHC 33.9 RDW Std Deviation 44.0 H RDW Coeff of Yolanda 13.0 Plt Count 265 MPV 9.1 Immature Gran % (Auto) 0.400 Neut % (Auto) 53.5 Lymph % (Auto) 31.5 [place] % (Auto) 10.0 Eos % (Auto) 3.8 Baso % (Auto) 0.8 Absolute Neuts (auto) 6.2 Absolute Lymphs (auto) 3.67 Nucleated RBC % 0 Sodium 140 Potassium 3.8 Chloride 106 Carbon Dioxide 27.0 Anion Gap 7 BUN 14 Creatinine 1.12 Estim Creat Clear Calc 107.01 Est GFR (MDRD) Af Amer 97 Est GFR (MDRD) Non-Af 80 BUN/Creatinine Ratio 12.5 Glucose 90 Calcium 10.0 Urine Color Yellow Urine Clarity Clear Urine pH 6.[address] 1.010 Urine Protein 30 H Urine Glucose (UA) Normal Urine Ketones Negative Urine Occult Blood 250 H Urine Nitrite Negative Urine Bilirubin Negative Urine Urobilinogen Normal Ur Leukocyte Esterase 500 H Urine RBC 5-10 SEEN Urine WBC 25-50 SEEN Ur Squamous Epith Cells 0 SEEN Urine Bacteria 0 SEEN Urine Mucus 0 SEEN Radiography Diagnostic Testing: Clinical Impression(s) from Imaging Studies Abdomen/Pelvis CT 07/09/22 00:24 IMPRESSION: No acute abdominal abnormality is identified, to include normal appendix and no evidence of obstructing ureteral calculus. Fatty liver. Electronically Signed: Rolo Garcia MD at 1:31 EDT , Treatment and Re-Evaluation :: CBC was a white count 11.7 with normal differential. Chemistry studies unremarkable. Creatinine is 1.12. Urinalysis reveals pyuria with 25-50 white cells and 5-10 red cells. No bacteria are seen. Nitrites are negative. A gonorrhea and Chlamydia test has been sent from the urine. Patient be given a dose of Rocephin and given doxycycline. Patient denies any discharge or history of STDs. He believes he and his are 100% little to each other and he does not think that he has a STD. I will recommend follow-up with urology. Prescription for Pyridium will be sent to the pharmacy along with doxycycline. Patient was advised that if his gonorrhea or chlamydia test are positive that he would be contacted. Discharge Plan Triage Chief Complaint: Complaint ED Provider: Kellie Seymour Dx/Rx/DC Orders Clinical Impression: Pyuria, sterile Prescriptions: New doxycycline monohydrate 100 mg capsule 100 mg PO BID Qty: 20 0RF phenazopyridine [Pyridium] 200 mg tablet 200 mg PO TID PRN (Reason: pain) Qty: 10 0RF No Action naproxen [Naprosyn] 500 mg tablet 500 mg PO BID PRN (Reason: pain) Qty: 30 0RF amoxicillin-pot clavulanate 875-125 mg tablet 1 tab PO Q12H Qty: 20 0RF amoxicillin-pot clavulanate 875-125 mg tablet 1 tab PO BID Qty: 14 0RF naproxen [Naprosyn] 500 mg tablet 500 mg PO BID PRN (Reason: pain) Qty: 20 0RF Primary Care Provider: Pete Burger Referrals: Pete Burger MD [Primary Care Provider] - Kain Gatica MD [Med Staff - Active Staff] - 1-2 Weeks Activity Restrictions/Additional Instructions: As discussed, your tests reveal white blood cells and evidence of infection in your urine, however no bacteria are seen. Your urine has been sent for gonorrhea and chlamydia testing to rule this out as a source. A urine culture has also been sent to test for bacterial growth. Please complete the antibiotics you were given and follow-up with Dr. Gatica, urologist. Disposition Disposition: Home, Self Care
[2022-07-09] MEDS: Ketorolac 30 MG/ML Syringe IV (00:35)
[2022-07-09] MEDS: Phenazopyridine 95 MG Tablet 190 MG PO (00:36)
[2022-07-09 00:39] LABS: Absolute Lymphocyte Count 3.67 X10^3/uL (0.83-4.51); Absolute Neutrophil Count 6.2 X10^3/uL (2.0-7.7); Basophil# 0.09 X10^3/uL; Basophil% 0.8 % (0-1); Eosinophil# 0.44 X10^3/uL; Eosinophils% 3.8 % (0-5); Hematocrit 43.9 % (40-54); Hemoglobin 14.9 g/dL (13.0-16.5); Lymphocyte # 3.67 X10^3/ul (0.83-4.51); Lymphocyte % 31.5 % (19-41); Mean Corp Hgb Conc 33.9 g/dL (32-36); Mean Corpuscular Hgb 31.5 pg (27.0-32.0); Mean Corpuscular Volume 92.8 fL (80-94); Mean Platelet Vol. 9.1 fl (6.2-12.0); Monocyte# 1.16 X10^3/uL; NRBC Flagged by Analyzer 0 % (0-5); Neutrophil # 6.24 X10^3/uL (2.7-7.7); Neutrophil % 53.5 % (47-70); Platelet Count 265 K/mm3 (150-450); Red Blood Count 4.73 M/mm3 (4.6-6.2); White Blood Count 11.7 K/mm3 (4.4-11.0)
[2022-07-09 00:39] LABS: Bacteria 0 SEEN /hpf (None Seen); Mucous, Urine 0 SEEN /hpf (<or=2+); Squamous Epithelial Cells - UA 0 SEEN /hpf (0-5)
[2022-07-09 00:44] LABS: Color, Urine Yellow (Yellow); Glucose, Dipstick Normal (Normal); Ketone-Dipstick Negative (Negative); Leukocyte Esterase-Dipstick 500 /ul (Negative); Nitrite-Dipstick Negative (Negative); Occult Blood-Urine 250 /ul (Negative); Protein-Dipstick 30 mg/dl (Negative); Urine Bilirubin Dipstick Negative (Negative); Urine Clarity Clear (Clear); Urine Urobilinogen Normal (Normal); Urine pH 6.5 (5.0 - 8.0)
[2022-07-09 00:57] LABS: Anion Gap 7 (5-15); BUN 14 mg/dL (7-18); BUN/Creat Ratio 12.5 RATIO (10-20); Chloride 106 mmol/L (98-107); Creatinine, Serum 1.12 mg/dL (0.70-1.30); EST Glomerular Filtration Rate 80 mL/min (>60); Est Glom Filt Rate - Afr Amer 97 mL/min (>60); Estimated Creatinine Clearance 107.01 ml/min; Glucose 90 mg/dL (74-106); Potassium 3.8 mmol/L (3.5-5.1); Sodium Level 140 mmol/L (136-145)
[2022-07-09 01:24] LABS: Red Blood Cells-Urine 5-10 SEEN /hpf (0-5); White Blood Cells 25-50 SEEN /hpf (0-5)
[2022-07-09] MEDS: Doxycycline 100 MG CAPSULE PO (02:12)
[2022-07-09] MEDS: Ceftriaxone 500 MG Vial 250 MG IM (02:13)
[2022-07-09 08:08] LABS: Chlamydia Trachomatis by PCR Negative (Negative); Probe Check PASS
[2022-07-09 08:10] LABS: Neisserai gonorrhoeae by PCR Positive (Negative)
== END 2022-07-09 02:18 | disposition home or self-care (01) ==
PROVIDERS: Emergency Provider Emergency Medicine; PCP Family Medicine; Visit Provider Emergency Medicine
DX: R82.81 Pyuria (principal); F17.210 Nicotine dependence, cigarettes, uncomplicated
CPT/HCPCS: 74176; 80048; 81001; 85025; 87086; 87491; 87591; 99283; A4216

== ENCOUNTER 2023-02-05 20:56 | Emergency (ER) | payer MEDICAID, SELFPAY ==
[2023-02-05 20:56] VITALS: BP 151/108; PULSE 125; RESP 16; TEMP 36.6; O2SAT 99; BMI 24.1
[2023-02-05] MEDS: Ondansetron 4 MG/2 ML Vial IV (22:22)
[2023-02-05] MEDS: 0.9% Normal Saline (1000mL) 1,000 ML 1000 ML IV (22:22)
[2023-02-05 22:23] LABS: Absolute Lymphocyte Count 3.71 X10^3/uL (0.83-4.51); Absolute Neutrophil Count 3.8 X10^3/uL (2.0-7.7); Basophil# 0.09 X10^3/uL; Basophil% 1.1 % (0-1); Eosinophil# 0.14 X10^3/uL; Eosinophils% 1.7 % (0-5); Hematocrit 44.6 % (40-54); Hemoglobin 15.3 g/dL (13.0-16.5); Lymphocyte # 3.71 X10^3/ul (0.83-4.51); Lymphocyte % 44.1 % (19-41); Mean Corp Hgb Conc 34.3 g/dL (32-36); Mean Corpuscular Hgb 31.9 pg (27.0-32.0); Mean Corpuscular Volume 92.9 fL (80-94); Mean Platelet Vol. 9.3 fl (6.2-12.0); Monocyte# 0.61 X10^3/uL; Monocyte% 7.2 % (0-10); NRBC Flagged by Analyzer 0 % (0-5); Neutrophil # 3.84 X10^3/uL (2.7-7.7); Neutrophil % 45.5 % (47-70); Platelet Count 249 K/mm3 (150-450); RBC Distribution Width CV 12.5 % (11.6-14.6); RBC Distribution Width SD 42.7 fl (35.1-43.9); White Blood Count 8.4 K/mm3 (4.4-11.0)
[2023-02-05 22:43] LABS: AST(SGOT) 26 U/L (15-37); Alanine Aminotransfer ALT/SGPT 39 U/L (16-61); Albumin, Serum 3.8 g/dL (3.2-5.0); Alkaline Phosphatase 67 U/L (45-117); Anion Gap 6 (5-15); BUN 10 mg/dL (7-18); BUN/Creat Ratio 10.9 RATIO (10-20); Bilirubin, Direct 0.09 mg/dL (0.00-0.30); Calcium,Total 9.2 mg/dL (8.5-10.1); Chloride 114 mmol/L (98-107); Creatinine, Serum 0.92 mg/dL (0.70-1.30); EST Glomerular Filtration Rate 101 mL/min (>60); Est Glom Filt Rate - Afr Amer 122 mL/min (>60); Globulin 3.6 g/dL (2.2-4.2); Glucose 95 mg/dL (74-106); Lipase 33 U/L (13-75); Potassium 3.4 mmol/L (3.5-5.1); Protein, Total 7.4 g/dL (6.4-8.2); Sodium Level 145 mmol/L (136-145)
[2023-02-05 23:00] VITALS: BP 120/66; PULSE 63; RESP 16; O2SAT 100
--- NOTE | 2023-02-05 23:01 | EDS_ITS ---
HPI HPI - GI History of Present Illness Chief Complaint: Nausea/Vomiting Narrative Narrative: 32-year-old male presenting with nausea/vomiting. He states his vomit was black. He states he had 1 episode yesterday and 1 today. Patient reports that he drinks vodka nearly every day. He states that about 6-10 shots. He has no history of stomach ulcers. No history of pancreatitis. He denies abdominal pain. He denies fevers or chills. He states he does not have any other medical problems except for poor dentition. His states that she has been telling him for a long time and he is to cut back on drinking. Patient does not believe that he needs admission for detox or that he would withdrawal. PFSH PFSH Home Medications naproxen 500 mg tablet (Naprosyn) 500 mg PO BID PRN pain #30 tabs 10/26/21 [Rx Last Taken Unknown] Allergy/AdvReac Type Severity Reaction Status Date / Time fish derived Allergy Severe Anaphylaxis Verified 01/21/22 16:21 [seafood - derived] shellfish derived Allergy Severe Anaphylaxis Verified 01/21/22 16:21 [seafood - shellfish] [place] And Derivatives Allergy HIVES Verified 02/05/23 20:58 Social History Smoking Status: Current every day smoker tobacco type: cigarettes ROS ROS ED Constitutional Constitutional ED: Denies chills, fever(s) or sweats Eyes Eyes: Denies blurry vision or change in vision ENT ENT ED: Denies ear pain or sore throat Cardiovascular Cardiovascular: Denies chest pain, palpitations or racing heartbeat Respiratory/Chest Respiratory/Chest: Denies cough, dyspnea or sputum Gastrointestinal Gastrointestinal: Reports nausea and vomiting; Denies abdominal pain, constipation or diarrhea Genitourinary Genitourinary ED: Denies dysuria, hematuria or urinary frequency Musculoskeletal Musculoskeletal: Denies arthralgias, myalgias or neck pain Integumentary Denies abscess, Abrasions or rash Neurologic Neurologic: Denies headache(s), paresthesias or weakness Psychiatric Psychiatric: Denies anxiety, depression, suicidal ideation or suicidal thoughts Endocrine Endocrinology: Denies polydipsia or polyuria EXAM Physical Exam Const Vital Signs: 02/05/23 20:56 Temperature 98 F Temperature Source Temporal Pulse Rate 125 H Respiratory Rate 16 Blood Pressure 151/108 H Blood Pressure Mean 122 Pulse Ox 99 Oxygen Delivery Method Room Air Positive well nourished General Appearance ED: NAD; Negative for pallor HEENT Reports moist mucous membranes normocephalic and atraumatic Eyes PERRL General Eye ED: Yes pale conjunctiva Resp normal respiratory effort and clear to auscultation bilaterally Auscultation: Negative for rales, rhonchi or wheezes Cardio regular rate and regular rhythm GI non-tender, non-distended and no masses Extremity full ROM Neuro CN's II-XII intact bilaterally, moves all extremities and no sensory deficits noted Sensorium / Orientation: alert Motor Exam: strength 5/5 throughout Psych mental status grossly normal and thought process normal Skin General Skin Exam: Negative for jaundice or pallor MDM MDM MDM Narrative Medical decision making narrative: Patient presenting with nausea/vomiting after drinking several shots of vodka tonight. Patient denies any significant medical history. Patient medicated with Protonix, Zofran, IV fluids. Differential includes gastritis, upper GI bleed, pancreatitis, GERD, acute blood loss anemia, EtOH intoxication. CBC was obtained to assess white blood cell count, hemoglobin, platelets. CMP to assess renal function, liver function, electrolytes, glucose. Lipase to assess for pancreatitis. Alcohol level will be obtained. CBC unremarkable. Hemoglobin 15.3. Platelets are normal at 249. Renal function is normal. LFTs are normal. Lipase within normal limits. Patient feeling better on examination. EtOH returned at 327. Patient counseled he will need discontinue drinking so much as this is likely why he is vomiting. He does not have any evidence of anemia. I will place him on a PPI give him some Zofran for home. I gave him a list of foods to avoid while he is feeling ill. Follow-up with PCP. Impression: 1. EtOH abuse 2. Nausea/vomiting 3. EtOH intoxication Lab Data Attestation: I reviewed the patient's lab results. Labs: Laboratory Results - last 24 hr 02/05/23 22:18 WBC 8.4 RBC 4.80 Hgb 15.3 Hct 44.6 MCV 92.9 MCH 31.9 MCHC 34.3 RDW Std Deviation 42.7 RDW Coeff of Yolanda 12.5 Plt Count 249 MPV 9.3 Immature Gran % (Auto) 0.400 Neut % (Auto) 45.5 L Lymph % (Auto) 44.1 H [place] % (Auto) 7.2 Eos % (Auto) 1.7 Baso % (Auto) 1.1 H Absolute Neuts (auto) 3.8 Absolute Lymphs (auto) 3.71 Nucleated RBC % 0 Sodium 145 Potassium 3.4 L Chloride 114 H Carbon Dioxide 25.0 Anion Gap 6 BUN 10 Creatinine 0.92 Estim Creat Clear Calc 136.50 Est GFR (MDRD) Af Amer 122 Est GFR (MDRD) Non-Af 101 BUN/Creatinine Ratio 10.9 Glucose 95 Calcium 9.2 Total Bilirubin 0.20 Direct Bilirubin 0.09 AST 26 ALT 39 Alkaline Phosphatase 67 Total Protein 7.4 Albumin 3.8 Globulin 3.6 Lipase 33 Ethyl Alcohol 327.0 H* Discharge Plan Triage Chief Complaint: Nausea/Vomiting ED Provider: Ronny Preston Dx/Rx/DC Orders Prescriptions: No Action naproxen [Naprosyn] 500 mg tablet 500 mg PO BID PRN (Reason: pain) Qty: 30 0RF Primary Care Provider: Pete Burger Referrals: Pete Burger MD [Primary Care Provider] -
[2023-02-05] MEDS: Pantoprazole Sodium 40 MG Tablet PO (23:18)
== END 2023-02-05 23:20 | disposition home or self-care (01) ==
PROVIDERS: Emergency Provider Student in an Organized Health Care Education/Training Program; PCP Family Medicine; Visit Provider Student in an Organized Health Care Education/Training Program
DX: F10.129 Alcohol abuse with intoxication, unspecified (principal); F17.210 Nicotine dependence, cigarettes, uncomplicated; R11.2 Nausea with vomiting, unspecified; Y90.8 Blood alcohol level of 240 mg/100 ml or more
CPT/HCPCS: 80048; 80076; 82077; 83690; 85025; 96361; 96374; 99283; J7030; A4216; J2405

== ENCOUNTER 2024-11-19 13:51 | Emergency (ER) | payer MEDICAID, SELFPAY ==
[2024-11-19 13:52] VITALS: BP 150/93; PULSE 106; RESP 16; TEMP 36.6; O2SAT 99
[2024-11-19 13:57] VITALS: BMI 24.0
--- NOTE | 2024-11-19 14:35 | EDS_ITS ---
HPI History of Present Illness Chief Complaint: Head Injury Narrative Narrative: 34-year-old male who denies significant past medical history presents after falling off of his chair yesterday evening at 10:30 PM approximately 16 hours ago. He states that he went to sit on a plastic chair and one of the legs bent. He fell backwards, striking his head. He denies any neck pain or loss of consciousness. He presents for evaluation today because he was moving a little slowly at work today in the afternoon. He denies any headache, no nausea or vomiting, no neck pain, no problems concentrating or brain fog. No tinnitus. No other symptoms. He thought that maybe he was a little sluggish because he had not eaten lunch yet. This morning when he woke up, he states that he was in his normal state of health. He does not take blood thinners. PFSH PFS Home Medications ?Medication ?Instructions ?Recorded ?Last Taken ?Type naproxen 500 mg tablet (Naprosyn) 500 mg PO BID PRN pa in #30 tabs 10/26/21 10/15/24 Rx Allergy/AdvReac Type Severity Reaction Status Date / Time fish derived (seafood - Allergy Severe Anaphylaxis Verified 11/19/24 13:54 derived) shellfish derived (seafood Allergy Severe Anaphylaxis Verified 11/19/24 13:54 - shellfish) [place] And Derivatives Allergy HIVES Verified 11/19/24 13:54 Social History Smoking Status: Current every day smoker tobacco type: cigarettes ROS ROS ED ROS Narrative Patient reports fall yesterday evening. No current headache, no nausea or vomiting, no neck pain, no injury. No hematoma on scalp. States was feeling slightly sluggish and slow at work in the afternoon, but had not eaten lunch. No exacerbating or alleviating factors. EXAM Physical Exam Narrative Exam Narrative: GCS 15. ABCs are intact. Cardiovascular examination reveals a regular rate and rhythm. Lungs are clear to auscultation bilaterally. Abdomen soft and nontender without guarding or rebound. Positive bowel sounds. Neurological examination nonfocal, nonlateralizing. Patellar DTRs equal and symmetric. Moves all extremities. Awake, alert, oriented. Interactive, appropriate. HEENT examination shows no crepitance, no hematoma in occiput. Full range of motion of head/neck without pain. No vertebral point tenderness or bony step- off. Const Vital Signs: 11/19/24 13:52 11/19/24 13:57 Temperature 98 F Temperature Source Temporal Pulse Rate 106 H Respiratory Rate 16 Respiratory Effort Normal Respiratory Depth Normal Respiratory Pattern Normal Blood Pressure 150/93 H Blood Pressure Mean 112 Pulse Ox 99 Oxygen Delivery Method Room Air Room Air MDM MDM MDM Narrative Medical decision making narrative: Differential diagnosis includes but not limited to mild concussion versus closed head injury versus intracranial hemorrhage. Patient does not take blood thinners. His injury was approximately 16 hours ago. There was no loss of consciousness. I do not feel CT is indicated. Patient agrees. I do not think he has a concussion as he is not showing any signs of concussion including headache, nausea, vomiting, tinnitus, paresthesias, or problems concentrating/brain fog. He states he feels fine and was just moving sluggish at work, so it was suggested to him that he be evaluated in the ED. At this point in time, I feel he can be discharged to follow-up with his primary care provider, but essentially he is asymptomatic. Return instructions to the emergency department were reviewed. Disposition is discharged home in stable condition. History & Record Review Additional record(s) reviewed:: Prior ED visit (Last seen 2 years ago in 2022) Discharge Plan Triage Chief Complaint: Head Injury ED Provider: Carloz Vo Dx/Rx/DC Orders Clinical Impression: Accidental fall from chair, Closed head injury Instructions: ED Mechanical Fall, ED Head Injury (Adult) Prescriptions: No Action naproxen [Naprosyn] 500 mg tablet 500 mg PO BID PRN (Reason: pain) Qty: 30 0RF Stand Alone Forms: ED Work / School Excuse Primary Care Provider: Peet Burger Referrals: Pete Burger MD [Primary Care Provider, Family Practice] - 1 Week if not improving Activity Restrictions/Additional Instructions: Follow-up with your primary care provider in 1 week if not improving. [id number] medications as needed for pain. Print Language: Kiswahili Disposition Disposition: Home, Self Care
[2024-11-19 14:47] VITALS: BP 112/68; PULSE 75; RESP 14; TEMP 36.7; O2SAT 100
== END 2024-11-19 14:48 | disposition home or self-care (01) ==
PROVIDERS: Emergency Provider Emergency Medicine; PCP Family Medicine; Visit Provider Emergency Medicine
DX: S09.90XA Unspecified injury of head, initial encounter (principal); W07.XXXA Fall from chair, initial encounter; F17.210 Nicotine dependence, cigarettes, uncomplicated
CPT/HCPCS: 99282